=== PATIENT | female | born 1975 | race Caucasian/White ===

== ENCOUNTER 2017-01-12 22:06 | Emergency (ER) | payer OTHER ==
[~2017-01-12] VITALS: Ht 175.2 cm; Wt 97.5 kg
[~2017-01-12 22:06] MED LIST: AMOXIL500 MG PO; AUGMENTIN 875 M1 TAB PO; AUGMENTIN XR 101 TER PO; CLARITIN10 MG PO; COLACE100 MG PO; DAYPRO600 M1 PO; DIFLUCAN150 MG PO; FLEXERIL10 MG PO; HYDROCODONE BIT1 T11 PO; MEDROL DOSEPAK4 MG PO; MOTRIN600 MG PO; MOTRIN800 MG PO; NORFLEX100 MG PO; OXYCODONE AND A1 TAB PO; PROVENTIL0.09 MG/AC IH; SOMA350 MG PO; TORADOL10 MG PO; TRAMADOL HCL50 MG PO; ULTRAM50 MG PO; VICODIN 5/500 505 MG PO; VICODIN 500 MG-1 TAB PO
[2017-01-12 22:27] VITALS: BP 157/100
[2017-01-12] MEDS ORDERED: ANAPROX DS550 MG PO (23:59)
== END 2017-01-13 00:20 | disposition home or self-care (01) ==
LOC: ED 22:06
DX: M17.12 Unilateral primary osteoarthritis, left knee (principal); F17.200 Nicotine dependence, unspecified, uncomplicated; Z88.1 Allergy status to other antibiotic agents

== ENCOUNTER → 2018-10-14 | Outpatient (CLI) | payer SELFPAY ==
[~2018-10-14] MED LIST changes: +ANAPROX DS550 MG PO
== END | disposition home or self-care (01) ==
LOC: ORTHO 02:28
DX: M25.511 Pain in right shoulder (principal)

== ENCOUNTER 2021-09-22 04:04 | Emergency (ER) | payer OTHER ==
[~2021-09-22] VITALS: Ht 175.2 cm; Wt 83.0 kg
[2021-09-22 04:39] LABS: BASO # 0.1 10*3/uL (0.0-0.1); BASO % 0.7 % (0.0-1.0); EOS # 0.2 10*3/uL (0.0-0.4); HEMATOCRIT 41.9 % (37.0-47.0); LYMPH # 1.3 10*3/uL (1.3-4.4); LYMPH % 18.5 % (27.0-41.0); MEAN CELL VOLUME 86.4 fl (81.0-99.0); MEAN CORPUSCULAR HGB 28.5 pg (27.0-31.0); MEAN CORPUSCULAR HGB CONC 32.9 g/dl (33.0-37.0); MEAN PLATELET VOLUME 9.5 fl (9.6-12.3); MONO # 0.5 10*3/uL (0.1-1.0); MONO % 7.3 % (3.0-9.0); NEUT # 5.1 10*3/uL (2.3-7.9); NEUT % 70.1 % (47.0-73.0); PLATELET COUNT AUTOMATED 294 10*3/uL (130-400); RED BLOOD COUNT 4.85 10*6/uL (4.10-5.10); RED CELL DISTRI WIDTH 13.5 % (0-14.5); WHITE BLOOD COUNT 7.3 10*3/uL (4.8-10.8)
[2021-09-22 04:55] LABS: ALBUMIN 3.8 gm/dl (3.1-4.5); ALKALINE PHOSPHATASE 79 U/L (45-117); BUN 19 mg/dl (7-24); CHLORIDE 102 mmol/L (98-107); CREATININE 1.12 mg/dL (0.55-1.02); POTASSIUM 3.3 mmol/L (3.5-5.1); SGOT/AST 16 IU/L (3-35); SGPT/ALT 32 U/L (12-78); SODIUM 137 mmol/L (136-145)
[2021-09-22 06:41] VITALS: BP 158/97
== END 2021-09-22 06:58 | disposition home or self-care (01) ==
LOC: ED 04:04
PROVIDERS: Internal Medicine
DX: R07.9 Chest pain, unspecified (principal); E87.6 Hypokalemia; Z88.1 Allergy status to other antibiotic agents

== ENCOUNTER 2022-09-28 01:26 | Emergency (ER) | payer OTHER ==
[~2022-09-28] VITALS: Ht 175.2 cm; Wt 84.5 kg
[~2022-09-28 01:26] MED LIST changes: +MACROBID100 M1 PO; +Motrin,Rufen800 MG PO
[2022-09-28 01:38] VITALS: BP 158/101
[2022-09-28 01:47] LABS: BASO # 0.1 10*3/uL (0.0-0.1); BASO % 0.8 % (0.0-1.0); EOS # 0.2 10*3/uL (0.0-0.4); EOS % 3.1 % (1.0-4.0); HEMATOCRIT 40.4 % (37.0-47.0); LYMPH # 1.8 10*3/uL (1.3-4.4); LYMPH % 28.6 % (27.0-41.0); MEAN CELL VOLUME 87.8 fl (81.0-99.0); MEAN CORPUSCULAR HGB 28.9 pg (27.0-31.0); MEAN CORPUSCULAR HGB CONC 32.9 g/dl (33.0-37.0); MEAN PLATELET VOLUME 9.9 fl (9.6-12.3); MONO # 0.4 10*3/uL (0.1-1.0); NEUT # 3.7 10*3/uL (2.3-7.9); NEUT % 60.2 % (47.0-73.0); PLATELET COUNT AUTOMATED 229 10*3/uL (130-400); WHITE BLOOD COUNT 6.2 10*3/uL (4.8-10.8)
[2022-09-28] MEDS ORDERED: HYDROCHLOROTHIA25 M1 PO (01:48)
[2022-09-28] MEDS ORDERED: LISINOPRIL10 M1 PO (01:48)
[2022-09-28 02:02] LABS: ALKALINE PHOSPHATASE 64 U/L (46-116); BUN 13 mg/dl (9-23); CHLORIDE 103 mmol/L (98-107); POTASSIUM 3.2 mmol/L (3.4-5.1); SGPT/ALT 16 U/L (10-49); TOTAL PROTEIN 7.6 gm/dL (6.0-8.0)
[2022-09-28 02:32] VITALS: BP 139/89
[2022-09-28 03:32] VITALS: BP 134/86
[2022-09-28 04:22] VITALS: BP 136/81
== END 2022-09-28 05:00 | disposition left against medical advice (07) ==
LOC: ED 01:26 → EDHOLD 04:35 → ED 04:35
PROVIDERS: Emergency Medicine
DX: R42 Dizziness and giddiness (principal); E87.6 Hypokalemia; I10 Essential (primary) hypertension; Z79.899 Other long term (current) drug therapy; Z88.1 Allergy status to other antibiotic agents; Z90.89 Acquired absence of other organs; Z98.51 Tubal ligation status; Z90.49 Acquired absence of other specified parts of digestive tract

== ENCOUNTER 2024-12-17 17:01 | Emergency (ER) | payer OTHER ==
[~2024-12-17] VITALS: Ht 175.2 cm; Wt 72.6 kg
[~2024-12-17 17:01] MED LIST changes: +HYDROCHLOROTHIA25 M1 PO; +LISINOPRIL10 M1 PO
[2024-12-17 17:17] VITALS: BP 185/102
[2024-12-17] MEDS ORDERED: methylPREDNISolone sod succ 125 MG VIAL IM ONE (17:55)
[2024-12-17] MEDS ORDERED: PREDNISONE50 MG PO (17:55)
== END 2024-12-17 18:00 | disposition home or self-care (01) ==
LOC: ED 17:01
DX: M17.11 Unilateral primary osteoarthritis, right knee (principal); Z88.1 Allergy status to other antibiotic agents; Z79.899 Other long term (current) drug therapy; Z90.49 Acquired absence of other specified parts of digestive tract